=== PATIENT | female | born 1940 | race Caucasian/White ===

== ENCOUNTER 2023-01-12 12:00 | Inpatient (IN) | payer MEDICARE, OTHER ==
[2023-01-12] MEDS ORDERED: Sodium Chloride 0.9% 10 ML Syringe FLUSH PRN (12:46)
[2023-01-12] MEDS ORDERED: Ondansetron 4 MG/2 ML SDV IVPUSH ONE (12:47)
[2023-01-12] MEDS ORDERED: Sodium Chloride 0.9% 500 ML IV ONE (12:47)
[2023-01-12 13:35] LABS: BASOPHILS ABSOLUTE AUTO 0.1 K/mm3 (0.0-0.2); BASOPHILS PERCENT AUTO 0.6 % (0.0-1.0); EOSINOPHILS ABSOLUTE AUTO 0.1 K/mm3 (0.0-0.4); EOSINOPHILS PERCENT AUTO 1.1 % (0.0-6.0); HEMATOCRIT 39.2 % (37.0-47.0); HEMOGLOBIN 13.3 gm/dl (12.0-16.0); IMMATURE GRAN ABSOLUTE AUTO 0.03 K/mm3 (0.00-0.05); IMMATURE GRAN PERCENT AUTO 0.2 % (0.0-0.4); LYMPHOCYTES ABSOLUTE AUTO 0.6 K/mm3 (1.0-4.8); LYMPHOCYTES PERCENT AUTO 4.7 % (24.0-44.0); MEAN CORPUSCULAR HEMOGLOBIN 35.3 pg (28.0-32.0); MEAN CORPUSCULAR HGB CONC 33.9 g/dl (32.0-36.0); MEAN PLATELET VOLUME 9.9 fl (9.4-12.3); MONOCYTES ABSOLUTE AUTO 0.6 K/mm3 (0.0-0.8); MONOCYTES PERCENT AUTO 4.5 % (0.0-8.0); NEUTROPHILS ABSOLUTE AUTO 10.9 K/mm3 (1.8-7.7); NEUTROPHILS PERCENT AUTO 88.9 % (41.0-71.0); PLATELET COUNT,PLT 333 K/mm3 (150-400); RED BLOOD CELL COUNT 3.77 M/mm3 (4.10-5.30); WHITE BLOOD CELL COUNT,WBC 12.21 K/mm3 (3.9-11.3)
[2023-01-12 14:05] LABS: A/G RATIO 0.5 (1-2); ALBUMIN 2.4 g/dl (3.4-5.0); ANION GAP 13.9 (5-15); BILIRUBIN TOTAL 0.6 mg/dL (0.2-1.0); BUN/CREATININE RATIO 33.8 (14-18); C-REACTIVE PROTEIN 8.1 mg/dL (<1.0); CALCIUM 8.5 mg/dL (8.5-10.1); CREATININE 0.8 mg/dL (0.55-1.02); EST CRCL DRUG DOSING (CG) 25.67 mL/min; MAGNESIUM 1.9 mg/dL (1.8-2.4); PROTEIN TOTAL,TP 7.7 g/dl (6.4-8.2)
[2023-01-12 14:13] LABS: POTASSIUM,K 4.9 mEq/L (3.5-5.1)
[2023-01-12 14:14] LABS: LACTIC ACID 2.8 mmol/L (0.4-2.0)
[2023-01-12 14:35] LABS: CORONAVIRUS COVID-19 NAA NEGATIVE (NEGATIVE); INFLUENZA A NAA NEGATIVE (NEGATIVE); RESPIRATORY SYNCYTIAL VIR NAA NEGATIVE (NEGATIVE)
[2023-01-12] MEDS ORDERED: fentaNYL 100 MCG/2 ML SDV IVPUSH PRN (17:55)
[2023-01-12] MEDS ORDERED: LORazepam 2 MG/ML SDV IVPUSH PRN (17:56)
[2023-01-12] MEDS: LORazepam 0.5 MG Tab PO SCH (20:27)
[2023-01-12] MEDS: Melatonin 3 MG Tab PO SCH (20:27)
[2023-01-12] MEDS: Acetaminophen 325 MG Tab PO PRN (21:37)
[2023-01-12] MEDS ORDERED: Non-Formulary Medication 1 Each (Lorazepam 0.5 MG Tablet) PO SCH (22:00)
[2023-01-13] MEDS ORDERED: Glycopyrrolate 0.2 MG/ML SDV IVPUSH PRN (07:23)
[2023-01-13] MEDS: LORazepam 0.5 MG Tab PO SCH ×3 (08:02→20:10)
[2023-01-13] MEDS: Albuterol/Ipratropium 3.0-0.5 MG/3 ML Neb Soln NEB PRN (20:01)
[2023-01-13] MEDS: Melatonin 3 MG Tab PO SCH (20:11)
[2023-01-13] MEDS: Acetaminophen 325 MG Tab PO PRN (22:37)
[2023-01-14] MEDS: Albuterol/Ipratropium 3.0-0.5 MG/3 ML Neb Soln NEB PRN (08:08)
[2023-01-14] MEDS: LORazepam 0.5 MG Tab PO SCH (09:02)
== END 2023-01-14 10:25 | DRG 951 ==
LOC: JD.ED 12:00 → JD.MS 16:44
PROVIDERS: ADMIT Internal Medicine; ATTEND Internal Medicine
DX: Z51.5 Encounter for palliative care (principal); R64 Cachexia; C16.9 Malignant neoplasm of stomach, unspecified; Z68.1 Body mass index [BMI] 19.9 or less, adult; F41.9 Anxiety disorder, unspecified; E86.0 Dehydration; E03.9 Hypothyroidism, unspecified; Z87.01 Personal history of pneumonia (recurrent); Z87.440 Personal history of urinary (tract) infections; Z98.890 Other specified postprocedural states; Z79.899 Other long term (current) drug therapy; Z90.3 Acquired absence of stomach [part of]; Z11.52 Encounter for screening for COVID-19
CPT/HCPCS: 0241U; 36415; 71045; 71045-26; 80053; 83605; 83735; 85025; 86140; 94640; 94760; 94761; 99285; A9270-GY; J2405; J3490; J7030; J7620-GY